=== PATIENT | female | born 1995 | race Caucasian/White ===

== ENCOUNTER 2017-06-29 13:08 | Emergency (ER) | payer OTHER ==
[2017-06-29 14:45] LABS: Hematocrit 36 % (35-47); Hemoglobin 11.9 g/dl (12.0-16.0); Mean Corpuscular HGB Conc 33 g/dl (31-36); Mean Corpuscular Hemoglobin 29 pg (27-31); Mean Corpuscular Volume 87 fL (80-97); Mean Platelet Volume 8 um3 (7.4-10.4); Red Blood Count 4.09 10^6/ul (4.0-5.4); Red Cell Distribution Width 14 % (10.5-15); White Blood Count 15.2 10^3/ul (3.5-10.8)
[2017-06-29 15:00] LABS: ALT 8 U/L (7-52); AST 14 U/L (13-39); Albumin 4.1 g/dL (3.2-5.2); Alkaline Phosphatase 66 U/L (34-104); Anion Gap 8 mmol/L (2-11); BUN/Creatinine Ratio 6.3 (8-20); Blood Urea Nitrogen 5 mg/dL (6-24); C Reactive Protein 162.03 mg/L (< 5.00); CO2 Carbon Dioxide 26 mmol/L (22-32); Calcium 9.4 mg/dL (8.6-10.3); Chloride 97 mmol/L (101-111); EGFR African American 119.3 (>60); EGFR Non-African American 92.8 (>60); Globulin 3.5 g/dL (2-4); Glucose 116 mg/dL (70-100); Lipase 14 U/L (11.0-82.0); Potassium 3.4 mmol/L (3.5-5.0); Sodium 131 mmol/L (133-145); Total Protein 7.6 g/dL (6.4-8.9)
[2017-06-29] MEDS ORDERED: NS 0.9% IV SCH (15:00)
[2017-06-29 15:01] LABS: Urine Bacteria Absent (Absent); Urine Bilirubin Negative (Negative); Urine Glucose Negative (Negative); Urine Nitrite Negative (Negative)
[2017-06-29] MEDS ORDERED: Iohexol 300* (CONTRAST) 10 ML SDV IV ONE (15:28)
[2017-06-29] MEDS ORDERED: NS 0.9% 1000 ML* 1,000 ML IV ONE (16:02)
--- NOTE | 2017-06-29 16:58 | RAD ---
CLINICAL HISTORY: Right lower quadrant pain and fever COMPARISON: None TECHNIQUE: Multiple contiguous axial CT scans were obtained of the abdomen and pelvis after the administration of intravenous contrast. Coronal and sagittal multiplanar reformations are submitted for review. Oral contrast was administered. Delayed images were obtained through the abdomen and pelvis. FINDINGS: LUNG BASES: The lung bases are clear. LIVER: The liver is normal in shape, size, contour, and attenuation. BILE DUCTS: There is no intrahepatic or extrahepatic biliary dilatation. GALLBLADDER: The gallbladder is normal, without pericholecystic inflammatory change. PANCREAS: The pancreas is normal, without mass or ductal dilatation. SPLEEN: Normal in size and appearance. UPPER GI TRACT: Evaluation of the gastrointestinal tract is limited by incomplete gastric distention. The upper GI tract is unremarkable. SMALL BOWEL AND MESENTERY: The small bowel is normal in contour, course, and caliber. There is no obstruction or dilatation. COLON: The colon is normal in contour, course, caliber. There is no pericolonic inflammatory change. There is a tubular, vermiform, hollow viscus that is blind ending, and originates from the cecum, consistent with a normal appendix. There is no periappendiceal inflammatory change. ADRENALS: Normal bilaterally. KIDNEYS: There is perinephric stranding on the right with mild right hydroureter. There is a simple right renal cyst. BLADDER: The bladder is smooth in contour. PELVIC ORGANS: An IUD is noted. The axis of the IUD appears to be transverse within the uterus and may be malpositioned. AORTA: The aorta is normal. IVC: Unremarkable LYMPH NODES: There is no lymphadenopathy by size criteria. ABDOMINAL WALL: There is no evidence for abdominal wall hernia. BONES AND SOFT TISSUES: There are mild diffuse degenerative changes. OTHER: None IMPRESSION: 1. NORMAL APPENDIX. 2. RIGHT PERINEPHRIC INFLAMMATORY CHANGE WITH MILD RIGHT HYDROURETER. THE APPEARANCE IS SUGGESTIVE OF UPPER URINARY TRACT INFECTION.. 3. AN IUD IS NOTED. THE AXIS OF THE IUD IS TRANSVERSE WITH RESPECT TO THE UTERUS AND MAY BE MALPOSITIONED.
[2017-06-29] MEDS ORDERED: cefTRIAXone VIAL(*) 1,000 MG in NS 0.9% 50 ML* 50 ML IVPB ONE (17:16)
[2017-06-29 18:19] VITALS: BP 96/69
--- NOTE | 2017-06-29 18:52 | ED ---
Sudha Ramos Thomas, scribed for Ramiro Briseno MD on 06/29/17 at 1452 . Abdominal Pain/Female - HPI Summary HPI Summary: The pt is a 21 y/o F referred from [facility] c/o RLQ abd pain that began four days ago. The pain is rated 4/10. The pain is aggravated and alleviated by nothing. 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 Pt additionally c/o constipation. At [facility], the patient had elevated WBC. A UA was not obtained there. PMHx: asthma. PSHx: none. SHx: rare alcohol use, no smoking, no illicit drug use. LNMP 06/16/17. - History of Current Complaint Chief Complaint: EDAbdPain Stated Complaint: FEVER/ABD PAIN Time Seen by Provider: 06/29/17 14:08 Hx Obtained From: Patient Hx Last Menstrual Period: 06/16/17 Onset/Duration: Lasting Days - onset four days ago Timing: Constant Severity Currently: Moderate Pain Intensity: 4 Pain Scale Used: 0-10 Numeric Radiates: No Aggravating Factor(s): Nothing Alleviating Factor(s): Nothing Associated Signs and Symptoms: Positive: Fever Allergies/Adverse Reactions: Allergies Allergy/AdvReac Type Severity Reaction Status Date / Time No Known Allergies Allergy Verified 06/29/17 14:08 PMH/Surg Hx/FS Hx/Imm Hx Previously Healthy: No Cardiovascular History: Denies: Hx Congestive Heart Failure Respiratory History: Reports: Hx Asthma - Surgical History Surgery Procedure, Year, and Place: None. Infectious Disease History: No Infectious Disease History: Denies: Traveled Outside the [place] in Last 30 Days - Family History Known Family History: Positive: Other - When asked, the patient responds "none" - Social History Alcohol Use: Rare Substance Use Type: Reports: None Smoking Status (MU): Never Smoked Tobacco Review of Systems Positive: Fever - patient complains of a fever for the last four days Positive: Abdominal Pain - RLQ pain onset four days ago All Other Systems Reviewed And Are Negative: Yes Physical Exam - Summary Physical Exam Summary: VITAL SIGNS: Reviewed. GENERAL: ~Patient is a well-developed and nourished female who is lying comfortable in the stretcher. ~Patient is not in any acute respiratory distress. HEAD AND FACE: No signs of trauma. ~No ecchymosis, hematomas or skull depressions. No sinus tenderness. EYES: PERRLA, EOMI x 2, No injected conjunctiva, no nystagmus. EARS: Hearing grossly intact. Ear canals and tympanic membranes are within normal limits. MOUTH: Oropharynx within normal limits. NECK: Supple, trachea is midline, no adenopathy, no JVD, no carotid bruit, no c- spine tenderness, neck with full ROM. CHEST: Symmetric, no tenderness at palpation LUNGS: Clear to auscultation bilaterally. No wheezing or crackles. CVS: Regular rate and rhythm, S1 and S2 present, no murmurs or gallops appreciated. ABDOMEN: Positive for RLQ tenderness. Soft. No signs of distention. No rebound no guarding, and no masses palpated. Bowel sounds are normal. EXTREMITIES: FROM in all major joints, no edema, no cyanosis or clubbing. NEURO: Alert and oriented x 3. No acute neurological deficits. Speech is normal and follows commands. SKIN: Dry and warm Triage Information Reviewed: Yes Vital Signs On Initial Exam: Initial Vitals Temp Pulse Resp BP Pulse Ox 99.0 F 104 14 107/75 98 06/29/17 13:21 06/29/17 13:21 06/29/17 13:21 06/29/17 13:21 06/29/17 13:21 Vital Signs Reviewed: Yes - Noe Coma Scale Coma Scale Total: 15 Diagnostics - Vital Signs Vital Signs Temp Pulse Resp BP Pulse Ox 06/29/17 14:30 84 96/68 100 06/29/17 14:26 102/62 06/29/17 14:23 85 98 06/29/17 14:05 99.0 F 84 15 105/75 98 06/29/17 14:03 90 98 06/29/17 14:01 105/75 06/29/17 13:21 99.0 F 104 14 107/75 98 - Laboratory Lab Results: Lab Results 06/29/17 Range/Units 14:30 WBC 15.2 H (3.5-10.8) 10^3/ul RBC 4.09 (4.0-5.4) 10^6/ul Hgb 11.9 L (12.0-16.0) g/dl Hct 36 (35-47) % MCV 87 (80-97) fL MCH 29 (27-31) pg MCHC 33 (31-36) g/dl RDW 14 (10.5-15) % Plt Count 219 (150-450) 10^3/ul MPV 8 (7.4-10.4) um3 Neut % (Auto) 82.6 (38-83) % Lymph % (Auto) 8.6 L (25-47) % [place] % (Auto) 8.6 (1-9) % Eos % (Auto) 0 (0-6) % Baso % (Auto) 0.2 (0-2) % Absolute Neuts (auto) 12.6 H (1.5-7.7) 10^3/ul Absolute Lymphs (auto) 1.3 (1.0-4.8) 10^3/ul Absolute Monos (auto) 1.3 H (0-0.8) 10^3/ul Absolute Eos (auto) 0 (0-0.6) 10^3/ul Absolute Basos (auto) 0 (0-0.2) 10^3/ul Absolute Nucleated RBC 0.01 10^3/ul Nucleated RBC % 0 Result Diagrams: 06/29/17 14:30 06/29/17 14:30 Lab Statement: Any lab studies that have been ordered have been reviewed, and results considered in the medical decision making process. - CT CT Abd/Pel CT Interpretation: Positive (See Comments) - 1. NORMAL APPENDIX. 2. RIGHT PERINEPHRIC INFLAMMATORY CHANGE WITH MILD RIGHT HYDROURETER. THE APPEARANCE IS SUGGESTIVE OF UPPER URINARY TRACT INFECTION.. 3. AN IUD IS NOTED. THE AXIS OF THE IUD IS TRANSVERSE WITH RESPECT TO THE UTERUS AND MAY BE MALPOSITIONED. CT Interpretation Completed By: Radiologist Abdominal Pain Fem Course/Dx - Course Course Of Treatment: The pt is a 21 y/o F referred from [facility] c/o RLQ abd pain that began four days ago. The pain is rated 4/10. The pain is aggravated and alleviated by nothing. 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 Pt additionally c/o constipation. At [facility], the patient had elevated WBC. A UA was not obtained there. PMHx : asthma. PSHx: none. SHx: rare alcohol use, no smoking, no illicit drug use. LNMP 06/16/17. Test results show WBC 15.2 without any bands, glucose 116, and CRP 162. UA is positive for ketones, blood, and leukocyte esterase. It seems that the UA may be contaminated. However, we will send for cultures. CT Abd/Pel shows 1. NORMAL APPENDIX. 2. RIGHT PERINEPHRIC INFLAMMATORY CHANGE WITH MILD RIGHT HYDROURETER. THE APPEARANCE IS. SUGGESTIVE OF UPPER URINARY TRACT INFECTION.. 3. AN IUD IS NOTED. THE AXIS OF THE IUD IS TRANSVERSE WITH RESPECT TO THE UTERUS AND MAY. BE MALPOSITIONED. Since the CT shows the patient may be dealing with pyelonephritis, I gave the patient Rocephin and she will be discharged home with Ciprofloxacin. The patient is hemodynamically stable, afebrile, and is feeling better without any pain. I offered the patient a pelvic exam, but she declined because she has no vaginal discharge or bleeding. The patient was recommended to return to the ED if she has any fevers , chills, weakness, or N/V. - Diagnoses Differential Diagnosis: Positive: Appendicitis, Constipation, Diverticulitis, Ectopic , Ovarian Cyst, Renal Colic, Urinary Tract Infection Provider Diagnoses: UTI / Pyelonephritis Discharge - Discharge Plan Condition: Stable Disposition: HOME Prescriptions: Ciprofloxacin TAB* [Cipro 500 MG TAB*] 500 mg PO BID #6 tab Patient Education Materials: Kidney Infection (ED), Urinary Tract Infection in Women (ED) Referrals: [facility] [Medical Doctor] - 3 Days The documentation as recorded by the Sudha adams Thomas accurately reflects the service I personally performed and the decisions made by me, Ramiro Briseno MD.
--- NOTE | 2017-07-01 12:44 | ED ---
Progress - Progress Note Progress Note: Pt's prelim urine cx reveals 25-50,000 e. coli. She was d/c'd w/ cipro. No change at this time. Course/Dx - Course Course Of Treatment: The pt is a 21 y/o F referred from [facility] c/o RLQ abd pain that began four days ago. The pain is rated 4/10. The pain is aggravated and alleviated by nothing. 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 Pt additionally c/o constipation. At [facility], the patient had elevated WBC. A UA was not obtained there. PMHx : asthma. PSHx: none. SHx: rare alcohol use, no smoking, no illicit drug use. LNMP 06/16/17. Test results show WBC 15.2 without any bands, glucose 116, and CRP 162. UA is positive for ketones, blood, and leukocyte esterase. It seems that the UA may be contaminated. However, we will send for cultures. CT Abd/Pel shows 1. NORMAL APPENDIX. 2. RIGHT PERINEPHRIC INFLAMMATORY CHANGE WITH MILD RIGHT HYDROURETER. THE APPEARANCE IS. SUGGESTIVE OF UPPER URINARY TRACT INFECTION.. 3. AN IUD IS NOTED. THE AXIS OF THE IUD IS TRANSVERSE WITH RESPECT TO THE UTERUS AND MAY. BE MALPOSITIONED. Since the CT shows the patient may be dealing with pyelonephritis, I gave the patient Rocephin and she will be discharged home with Ciprofloxacin. The patient is hemodynamically stable, afebrile, and is feeling better without any pain. I offered the patient a pelvic exam, but she declined because she has no vaginal discharge or bleeding. The patient was recommended to return to the ED if she has any fevers , chills, weakness, or N/V. - Diagnoses Provider Diagnoses: UTI / Pyelonephritis
--- NOTE | 2017-07-02 19:42 | PN ---
Progress Note - Progress Note Date of Service: 07/02/17 Note: Patient placed on cipro which final cultures shows is sensitive to so no further action needed.
== END 2017-06-29 18:24 | disposition home or self-care (01) ==
LOC: ED 13:08
DX: N39.0 Urinary tract infection, site not specified (principal); N12 Tubulo-interstitial nephritis, not specified as acute or chronic; J45.909 Unspecified asthma, uncomplicated; Z97.5 Presence of (intrauterine) contraceptive device
CPT/HCPCS: 36415; 74177; 80053; 81003; 81015; 83605; 83690; 84702; 85025; 86140; 87040; 87077; 87086; 87186; 99283; J0696; Q9967